=== PATIENT | female | born 1985 | race Hispanic/Latino ===

== ENCOUNTER → 2016-11-17 | Outpatient (CLI) | payer OTHER, MEDICAID ==
--- NOTE | 2016-11-17 11:38 | Diagnostic Imaging Report ---
INDICATION: survey. COMPARISON: 09/21/2016. DISCUSSION: Transabdominal sonographic evaluation of the gravid uterus was performed. Single live intrauterine at 20 weeks 2 days by today's sonographic measurements. Appropriate interval growth. EDC by today's ultrasound is 04/04/2017. presentation is breech. Normal amniotic fluid index. Grade 1 placenta is located anteriorly with no placenta previa. heart rate measures 133 beats per minute. Biparietal diameter measures 4.8 cm. Head circumference measures 17.2 cm. Abdominal circumference measures 15.6 cm. Femur length measures 3.0 cm. There is good visualization of the kidneys, bladder, stomach, brain, four-chamber heart, three-vessel cord and insertion, and movement; however, the entire spine is not well visualized due to positioning. Recommend short-term sonographic follow-up. IMPRESSION: 1. Single live intrauterine at 20 weeks 2 days by sonographic measurements. Poor visualization of the spine due to positioning. Recommend short-term sonographic follow-up. The remainder of the anatomical survey was within normal limits. Dictated by: Dictated on workstation # [id number]
== END ==
LOC: RAD 10:23
PROVIDERS: ATTEND Family Medicine
DX: Z34.82 Encounter for supervision of other normal pregnancy, second trimester (principal); Z3A.20 20 weeks gestation of pregnancy
CPT/HCPCS: 76805

== ENCOUNTER → 2017-01-19 | Outpatient (CLI) | payer MEDICAID | LOC: LAB 08:09 | PROVIDERS: ATTEND Family Medicine | DX: R73.02 Impaired glucose tolerance (oral) (principal) | CPT/HCPCS: 36415; 82951; 82952; 82962 ==

== ENCOUNTER → 2017-01-21 | Outpatient (CLI) | payer MEDICAID ==
--- NOTE | 2017-01-21 13:50 | Diagnostic Imaging Report ---
OB ultrasound. INDICATION: Followup spine. FINDINGS: heart rate is 124 beats per minute. The placenta is anterior. No placenta previa. The cervix is 6 cm in length and is closed. Amniotic fluid index is 13 cm. The spine is seen best in its upper and mid aspects and the less well defined in the inferior aspect with no definitive abnormality. IMPRESSION: Live intrauterine . No definite abnormality in the spine seen. Dictated by: Dictated on workstation # [id number]
== END ==
LOC: RAD 11:01
PROVIDERS: ATTEND Family Medicine
DX: Z34.80 Encounter for supervision of other normal pregnancy, unspecified trimester (principal)
CPT/HCPCS: 76816

== ENCOUNTER → 2017-03-11 | Outpatient (CLI) | payer MEDICAID ==
--- NOTE | 2017-03-11 19:03 | Diagnostic Imaging Report ---
INDICATION: Diet-controlled gestational diabetes. TECHNIQUE: Multiple real-time grayscale images were obtained over the gravid uterus. COMPARISON: 01/21/2017 FINDINGS: heart rate is 132 beats per minute. The placenta is anterior. No placenta previa. position is cephalic. RIIS is 10.2 cm. Biometrical measurements are as follows: Biparietal 8.89 cm, age 36 weeks 0 days. Head circumference 32.22 cm, age 36 weeks 3 days. Abdominal circumference 34.61 cm, age 38 weeks 4 days. The abdominal circumference is at 2.1 standard deviations above the mean for current gestational age of 36 weeks and 1 day based on DAVID assigned of 04/07/2017. Femur length 7.05 cm, age 36 weeks 1 days. Sonographic estimate age: 36 weeks 6 days. Sonographic estimated date of delivery: 04/02/2017. Estimated Weight: 3205 gm (+/- 468 gm). LMP percentile: 84%. heart rate: 132 beats per minute. number: 1 of 1. IMPRESSION: The abdominal circumference is at 2.1 standard deviations above the mean for gestational age. Dictated by: Dictated on workstation # [id number]
== END ==
LOC: RAD 10:49
PROVIDERS: ATTEND Family Medicine
DX: O24.410 Gestational diabetes mellitus in pregnancy, diet controlled (principal); Z3A.36 36 weeks gestation of pregnancy
CPT/HCPCS: 76816

== ENCOUNTER 2017-03-19 13:10 | Outpatient (RCR) | payer MEDICAID ==
--- NOTE | 2017-03-12 14:16 | Diagnostic Imaging Report ---
INDICATION: Gestational diabetes. biophysical profile performed in the routine fashion. The fetus scored 2 out of 2 in breathing, body movement, limb movement, and amniotic fluid index. Amniotic fluid index is 8.7 cm. heart rate is 149 beats per minute. IMPRESSION: biophysical profile score 8 out of 8. Dictated by: Dictated on workstation # [id number]
--- NOTE | 2017-03-19 14:08 | Diagnostic Imaging Report ---
INDICATION: biophysical profile. Gestational diabetes. FINDINGS: There is single live intrauterine fetus. Fetus is vertex. heart beat of 123 beats per minute. Amniotic fluid index is 5.6 cm. There is good motion and breathing. IMPRESSION: Normal biophysical profile scoring 8 of potential 8 points. The amniotic fluid index has decreased from 8.7 on previous exam to 5.6. Dictated by: Dictated on workstation # [id number]
[2017-03-19 15:11] VITALS: BP 119/63
[2017-03-24] MEDS ORDERED: PREN1TAB86 PO (22:23)
[2017-03-24] MEDS ORDERED: RANI-514 PO (22:25)
[2017-03-26] MEDS ORDERED: IBUP-1773 PO (10:13)
[2017-03-26] MEDS ORDERED: FERR-74 PO (10:13)
[2017-03-28] MEDS ORDERED: [UNRECOGNIZED DRUG - SUPPLY] ×2 (21:44→21:45)
[2017-03-28] MEDS ORDERED: HYDR-3812 PO (22:32)
[2017-03-28] MEDS ORDERED: CEPH500C PO (22:32)
== END 2017-06-10 | disposition home or self-care (01) ==
LOC: RAD 13:10
PROVIDERS: ATTEND Family Medicine
DX: O24.419 Gestational diabetes mellitus in pregnancy, unspecified control (principal); Z3A.36 36 weeks gestation of pregnancy
CPT/HCPCS: 76819; 87210

== ENCOUNTER 2017-03-24 18:18 | Inpatient (IN) | payer MEDICAID ==
[~2017-03-24] VITALS: Ht 152.4 cm; Wt 96.2 kg
[2017-03-24 19:15] VITALS: BP 126/71
[2017-03-24] MEDS ORDERED: AMPICILLIN INJECTION 2,000 MG in NS (IVPB) 50 ML IV SCH ×4 (19:59)
[2017-03-24 20:00] VITALS: BP 122/80
[2017-03-24] MEDS ORDERED: TETANUS,DIPTH,PERTUSS P/F (BOOSTRIX) 0.5 ML VIAL IM ONE (20:00)
[2017-03-24] MEDS ORDERED: MINERAL OIL CONCENTRATE 99.9% 15 ML UDC TOP PRN (20:00)
[2017-03-24] MEDS ORDERED: D5 LR IV SOLUTION 1,000 ML IV ONE (20:01)
[2017-03-24 20:18] LABS: BASOPHILS % (AUTO) 0 % (0-10); EOSINOPHILS # (AUTO) 0.2 10^3/uL (0.0-0.3); EOSINOPHILS % (AUTO) 3 % (0-10); LYMPHOCYTES # (AUTO) 1.7 X 10^3 (1.0-4.0); LYMPHOCYTES % (AUTO) 21 % (12-44); MEAN CORPUSCULAR HEMOGLOBIN 29 PG (25-34); MEAN CORPUSCULAR HGB CONC 32 G/DL (32-36); MEAN CORPUSCULAR VOLUME 89 FL (80-99); MEAN PLATELET VOLUME 13.4 FL (7.4-10.4); MONOCYTES # (AUTO) 0.5 X 10^3 (0.0-1.0); MONOCYTES % (AUTO) 6 % (0-12); NEUTROPHILS # (AUTO) 5.5 X 10^3 (1.8-7.8); NEUTROPHILS % (AUTO) 70 % (42-75); PLATELET COUNT 181 10^3/uL (130-400); RED CELL DISTRIBUTION WIDTH 13.9 % (10.0-14.5); WHITE BLOOD COUNT 7.8 10^3/uL (4.3-11.0)
[2017-03-24] MEDS ORDERED: DINOPROSTONE 10 MG (CERVIDIL) INSERT ONE (20:20)
[2017-03-24] MEDS: NS IV 1000 ML 1,000 ML IV SCH (20:35)
[2017-03-24 21:00] VITALS: BP 141/67
[2017-03-24 22:00] VITALS: BP 138/72
[2017-03-24] MEDS ORDERED: CATHETER FLUSH 10 ML SYR IV SCH (22:00)
[2017-03-24] MEDS ORDERED: PREN1TAB86 PO (22:23)
[2017-03-24] MEDS ORDERED: RANI-514 PO (22:25)
[2017-03-24 23:00] VITALS: BP 122/54
[2017-03-25] VITALS (48 sets, daily range): BP systolic 96–150; BP diastolic 55–85
[2017-03-25] MEDS ORDERED: AMPICILLIN INJECTION 1,000 MG in NS (IVPB) 50 ML IV SCH ×2
[2017-03-25] MEDS ORDERED: ACETAMINOPHEN 500 MG TAB (TYLENOL) PO ONE (00:01)
[2017-03-25] MEDS ORDERED: ACETAMINOPHEN 500 MG TAB (TYLENOL) ONE (00:08)
[2017-03-25] MEDS: AMPICILLIN INJECTION 1,000 MG in NS (IVPB) 50 ML IV SCH ×4 (00:33→12:03)
[2017-03-25] MEDS: BUTORPHANOL INJ 2 MG/ML (STADOL) VIAL IV PRN ×3 (03:15→08:24)
[2017-03-25] MEDS ORDERED: NS (IVPB) 50 ML ONE (04:21)
[2017-03-25] MEDS ORDERED: AMPICILLIN 1000 MG INJECTION (IV/IM) ONE (04:21)
[2017-03-25] MEDS: NS IV 1000 ML 1,000 ML IV SCH (04:40)
[2017-03-25] MEDS ORDERED: D5 1/2 NS 1000 ML IV SOLUTION 1,000 ML IV SCH (08:45)
[2017-03-25] MEDS ORDERED: SUFENTA 0.6MCG/ML BUPIVA 0.125 100 ML ONE (09:21)
[2017-03-25] MEDS ORDERED: BUPIVACAINE 0.25% 30 ML (SENSORCAINE) VIAL ONE (09:45)
[2017-03-25] MEDS ORDERED: LIDOCAINE PF 2% 10 ML (XYLOCAINE) AMP ONE (09:45)
[2017-03-25] MEDS ORDERED: fentaNYL INJECTION 100 MCG/2 ML AMP ONE (09:45)
[2017-03-25] MEDS ORDERED: OXYTOCIN/NORMAL SALINE 500 ML IV ONE ×2 (11:43→14:15)
[2017-03-25] MEDS ORDERED: LACTATED RINGERS 1,000 ML IV ONE ×2 (12:50)
[2017-03-25] MEDS ORDERED: NALOXONE 0.4 MG/ML 1 ML (NARCAN) VIAL IV PRN (13:00)
[2017-03-25] MEDS ORDERED: EPIDURAL (SUFENTA 0.6MCG/ML BUPIVA 0.125%) 100 ML BAG EPI PRN (13:00)
[2017-03-25] MEDS ORDERED: ONDANSETRON 4 MG/2 ML (SDV) Z0FRAN IV PRN (13:00)
[2017-03-25] MEDS: OXYTOCIN/NORMAL SALINE 500 ML IV SCH ×2 (13:46→14:19)
--- NOTE | 2017-03-25 14:05 | History & Physical-OB ---
OB - Chief Complaint & HPI Date Date of Admission: Date of Admission: March 24, 2017 at 18:21 Chief Complaint/History OB-Reason for Admission/Chief: Induction of Labor Hx : 2 Hx Para: 1 Expected Date of Delivery: Apr 05, 2017 Gestational Age in Weeks: 38 Indication for induction: medical complication (Gestational DM:diet controlled , IRIS 5.2) History of Labs GBS + Allergies and Home Medications Allergies Coded Allergies: No Known Drug Allergies (Unverified , 03/24/17) Home Medications Vit W-Ca,Fe,FA(<1 mg) 1 Each Tablet, 1 EACH PO DAILY, (Reported) Ranitidine HCl Unknown Strength Tablet, Unknown Dose PO BID, (Reported) OB - History Hx of Present Care: Yes Ultrasounds: Normal mid trimester US Obstetrical Complications: Gestational Diabetes Information Maternal Gestational Diabetes: Yes Obstetrical History Hx : 2 Hx Para: 1 Hx # Term Pregnancies: 1 Number of Living Children: 1 Hx Induced Hypertens: No Hx Maternal Gestational Diabet: No Delivery History Adverse Rxn to Tranfusion: No Patient Past Medical History Gestational DM Social History/Family History HIV/AIDS: No Recent Infectious Disease Expo: No Sexually Transmitted Disease: No Alcohol Use: Denies Use Recreational Drug Use: No Immunizations Hepatitis A: Yes Hepatitis B: Yes Tetanus Booster (TDap): Less than 5yrs Rubella: immune RPR/VDRL: Negative GBS Status: Positive HBsAG: Negative OB - Admission Exam Physical Exam Vitals: Vital Signs 03/25/17 03/25/17 10:06 10:40 Temp 99.1 Pulse 75 Resp 22 B/P (MAP) 119/65 Pulse Ox 98 Heart: Rhythm Normal Lungs: Clear Abdomen: Soft Extremities: Normal Reflexes: Normal Cervical Dilatation: 10cm Effacement: 100% Station: 0 Membranes: Ruptured Amniotic Fluid: Clear Heart Rate: 140's Accelerations: Accelerations Present Decelerations: Variable Decelerations Labs Laboratory Tests Test 03/24/17 20:12 03/24/17 20:50 03/25/17 02:51 03/25/17 08:27 Range/Units White Blood Count 7.8 4.3-11.0 10^3/uL Red Blood Count 4.40 4.35-5.85 10^6/uL Hemoglobin 12.7 11.5-16.0 G/DL Hematocrit 39 35-52 % Mean Corpuscular Volume 89 80-99 FL Mean Corpuscular Hemoglobin 29 25-34 PG Mean Corpuscular Hemoglobin Concent 32 32-36 G/DL Red Cell Distribution Width 13.9 10.0-14.5 % Platelet Count 181 130-400 10^3/uL Mean Platelet Volume 13.4 H 7.4-10.4 FL Neutrophils (%) (Auto) 70 42-75 % Lymphocytes (%) (Auto) 21 12-44 % Monocytes (%) (Auto) 6 0-12 % Eosinophils (%) (Auto) 3 0-10 % Basophils (%) (Auto) 0 0-10 % Neutrophils # (Auto) 5.5 1.8-7.8 X 10^3 Lymphocytes # (Auto) 1.7 1.0-4.0 X 10^3 Monocytes # (Auto) 0.5 0.0-1.0 X 10^3 Eosinophils # (Auto) 0.2 0.0-0.3 10^3/uL Basophils # (Auto) 0.0 0.0-0.1 10^3/uL Glucometer 88 79 67 L 70-110 MG/DL Test 03/25/17 10:26 03/25/17 11:37 03/25/17 12:39 Range/Units Glucometer 88 94 98 70-110 MG/DL OB - Assessment/Plan/Diagnosis Assessment Assessment: induction of labor Plan Plan: Induction Induction Method: per Pitocin Protocol Other Plan 31 yo @ 38 wga here for IOL for gestational DM, low IRIS. Plan - Cervidil removed this AM - SROM when cervidil removed - GBS +: Ampicillin - Continue expectant management - GDM: D51/2NS for fluids, blood sugars every hour during active labor - epidural for pain control. Copy Copies To 1: JAQUELINE ALVES MD, HOLLY R MD March 25, 2017 14:05
--- NOTE | 2017-03-25 14:12 | OB Labor & Delivery Record ---
L&D History Date of Service Date of Service: March 25, 2017 History Expected Date of Delivery: Apr 05, 2017 Gestational Age in Weeks: 38 Hx : 2 Hx Para: 1 Complications Events: Gestational Diabetes, Routine care Operative Indications (Cesarea: N/A-Vaginal Delivery Intrapartal Events: None L&D Stage1 Stage One Onset of Labor - Date: March 25, 2017 Onset of Labor - Time: 08:26 Monitors and Tracing Monitor Mode: External Heart Rate: 120 Station: -2 Vital Signs VS - Last 72 Hours, by Label 03/24/17 03/24/17 03/24/17 03/24/17 19:15 20:00 21:00 22:00 Temp 98.3 Pulse 90 81 93 98 Resp 20 18 18 18 B/P (MAP) 126/71 122/80 141/67 138/72 03/24/17 03/25/17 03/25/17 03/25/17 23:00 00:01 01:00 02:00 Temp 97.3 99.5 Pulse 94 89 75 85 Resp 18 18 20 20 B/P (MAP) 122/54 144/74 126/71 107/56 03/25/17 03/25/17 03/25/17 03/25/17 03:00 03:45 04:15 04:45 Temp 99.8 97.8 Pulse 75 80 76 Resp 18 20 18 B/P (MAP) 111/57 118/64 116/61 03/25/17 03/25/17 03/25/17 03/25/17 05:45 06:10 07:00 07:16 Temp 98.3 98.1 Pulse 81 70 75 Resp 18 20 20 B/P (MAP) 100/55 119/55 120/63 03/25/17 03/25/17 03/25/17 03/25/17 07:28 07:58 08:28 08:58 Pulse 74 77 84 82 Resp 18 18 18 18 B/P (MAP) 110/58 119/76 131/71 121/77 03/25/17 03/25/17 03/25/17 03/25/17 09:28 09:58 10:00 10:03 Pulse 87 81 81 85 Resp 18 18 18 22 B/P (MAP) 150/85 143/73 133/67 136/65 Pulse Ox 98 98 03/25/17 03/25/17 03/25/17 03/25/17 10:06 10:09 10:13 10:16 Temp 99.1 Pulse 82 77 76 82 Resp 22 22 B/P (MAP) 132/71 121/69 115/67 122/75 Pulse Ox 97 96 97 03/25/17 03/25/17 03/25/17 03/25/17 10:19 10:22 10:25 10:30 Pulse 85 75 78 71 Resp 22 22 22 22 B/P (MAP) 96/58 114/69 118/71 123/70 Pulse Ox 97 98 98 98 03/25/17 10:40 Pulse 75 Resp 22 B/P (MAP) 119/65 Pulse Ox 98 Rupture of Membranes Spontaneous Ruture of Membrane: Yes Amniotic Membrane Rupture Time: 08:26 Amniotic Membrane Fluid Desc.: Clear Induction/Anesthesia Epidural Cath Placement - Time: 0958 L&D Stage2 Stage Two Stage II Date: March 25, 2017 Stage II Time: 13:41 Monitors and Tracing Monitor Mode: Internal Heart Rate: 120 Monitor Decelerations: Variable Position: Left Occiput Anterior Presentation: Vertex Cord Descript/Complications Cord Vessel Description: 3 Vessels Delivery Type Infant Delivery Method: Spontaneous Vaginal Anterior Shoulder: Right Episiotomy/Perineal Laceration Episiotomy Description: Midline (skin tear, no repair needed) Condition of Delivery Delivery Date & Time: 1341 1 minute Comment: 9 5 minute Comment: 9 Condition of Infant Condition of Infant: Living Exam: No Observed Abnormalities BW: 7#0 Resuscitation Resuscitation: N/A - Spontaneous Resp L&D Stage3 Stage Three Stage III Date: March 25, 2017 Stage III Time: 13:46 Pictocin Pitocin Administration Comment: 2 bags wide open following delivery of placenta Placenta Delivery Placenta Delivery: Spontaneous Delivery Summary Summary Vaginal blood loss >500ml: No 150 Attending at delivery: Keiry Condition of Delivery Examined: Cervix Examined Post Hemorrhage: No Condition of Mother Stable in delivery room Condition of (s) Stable in delivery room with mother JAQUELINE ALVES MD March 25, 2017 14:12
[2017-03-25] MEDS ORDERED: WITCH HAZEL(TUCKS) 40 EA JAR TOP PRN (14:15)
[2017-03-25] MEDS ORDERED: BENZOCAINE/MENTHOL (DERMOPLAST) 56 ML CAN TP PRN (14:15)
[2017-03-25] MEDS: IBUPROFEN 600 MG (MOTRIN) TAB PO SCH ×2 (14:49→20:39)
[2017-03-25] MEDS ORDERED: MISOPROSTOL 200 MCG (CYTOTEC) TABLET PR NR (19:00)
[2017-03-26 00:18] VITALS: BP 101/58
[2017-03-26] MEDS: IBUPROFEN 600 MG (MOTRIN) TAB PO SCH ×3 (02:58→16:00)
[2017-03-26 03:03] VITALS: BP 110/58
[2017-03-26 05:47] LABS: BASOPHILS % (AUTO) 0 % (0-10); EOSINOPHILS # (AUTO) 0.2 10^3/uL (0.0-0.3); EOSINOPHILS % (AUTO) 2 % (0-10); LYMPHOCYTES # (AUTO) 2.4 X 10^3 (1.0-4.0); LYMPHOCYTES % (AUTO) 18 % (12-44); MEAN CORPUSCULAR HEMOGLOBIN 29 PG (25-34); MEAN CORPUSCULAR HGB CONC 33 G/DL (32-36); MEAN CORPUSCULAR VOLUME 90 FL (80-99); MEAN PLATELET VOLUME 13.4 FL (7.4-10.4); MONOCYTES # (AUTO) 0.7 X 10^3 (0.0-1.0); MONOCYTES % (AUTO) 5 % (0-12); NEUTROPHILS % (AUTO) 75 % (42-75); PLATELET COUNT 168 10^3/uL (130-400); RED BLOOD COUNT 3.65 10^6/uL (4.35-5.85); WHITE BLOOD COUNT 13.3 10^3/uL (4.3-11.0)
[2017-03-26] MEDS: CATHETER FLUSH 10 ML SYR IV SCH ×2 (06:07→06:08)
[2017-03-26] MEDS ORDERED: PRENATAL VITAMIN 1 EA TAB PO SCH (07:00)
[2017-03-26] MEDS ORDERED: FERROUS SULF 325 MG (IRON) TAB PO ONE (09:05)
[2017-03-26 09:07] VITALS: BP 109/69
[2017-03-26] MEDS ORDERED: FERR-74 PO (10:13)
[2017-03-26] MEDS ORDERED: IBUP-1773 PO (10:13)
--- NOTE | 2017-03-26 10:16 | Discharge Instructions ---
Discharge Inst-Women's Serv Depart Medications New, Converted or Re-Newed RX: Transmitted to Pharmacy New Medications: Ferrous Sulfate (Ferrous Sulfate) 325 Mg Tablet 325 MG PO DAILY@0700, #30 TAB 0 Refills Ibuprofen (Ibuprofen) 600 Mg Tablet 600 MG PO Q6H PRN for PAIN-MILD TO MODERATE, #60 TAB 0 Refills Continued Medications: Vit W-Ca,Fe,FA(<1 mg) ( Vitamins) 1 Each Tablet 1 EACH PO DAILY, TAB Discontinued Medications: Ranitidine HCl (Acid [employer] (RANITIDINE)) Unknown Strength Tablet Unknown Dose PO BID, TAB Follow Up/Instructions Goal/Follow Up: Follow up with Dr. Ricci in 6 weeks for visit. Activity Activity: Activity as Tolerated (avoid strenuous activity x 6 weeks) Driving Instructions: You May Drive Nothing Inside Vagina: No Douching, No Loiza Diet Discharge Diet: No Restrictions Symptoms to Report to : Swelling Increased, Fever Over 101 Degrees F, Pain/ Pressure in Chest, Vaginal Bleeding Increase, Cramps in Feet or Legs, Vaginal Discharge Foul, Dizziness/Fainting, Shortness of Breath For Any Problems or Questions: Contact Your Physician Copies To 1: JAQUELINE RICCI MD, BETHANY N MD March 26, 2017 10:16 am
--- NOTE | 2017-03-26 10:17 | Discharge Summary ---
Diagnosis/Chief Complaint Date of Admission March 24, 2017 at 6:21 pm Date of Discharge March 26, 2017 Admission Diagnosis Admission Diagnosis Term IUP at 38 weeks Gestational diabetes diet controlled Borderline oligohydramnios Discharge Diagnosis S/P spontaneous vaginal delivery- unremarkable course, asymptomatic anemia, started on iron once daily Gestational diabetes, diet controlled- discussed importance of 6 week follow-up and lifelong risk of developing diabetes Chief Complaint/HPI Chief Complaint/HPI 31 yo G2 now P2 presented to L&D for IOL due to GDMA1 and borderline oligohydramnios at 38 weeks gestation. Discharge Summary-Simple/Stand Procedures Spontaneous vaginal delivery Discharge Physical Examination Allergies: Coded Allergies: No Known Drug Allergies (Unverified , 03/24/17) Vitals & I&Os Vital Sign - Last 12Hours Date Time Temp Pulse Resp B/P (MAP) Pulse Ox O2 Delivery O2 Flow Rate FiO2 03/26/17 09:07 97.4 80 20 109/69 97 Intake and Output 03/26/17 00:00 Intake Total 1500 ml Balance 1500 ml General Appearance: Alert, No Acute Distress Respiratory: Clear to Auscultation, Normal Air Movement Cardiovascular: Regular Rate, No Murmurs Abdominal: Normal Bowel Sounds, Other (fundus firm at umbilicus) Extremities: No Edema Neuro: Normal Speech Psych/Mental Status: Mental Status NL Hospital Course See final discharge diagnosis. Labs Laboratory Tests Test 03/24/17 20:12 03/24/17 20:50 03/25/17 02:51 03/25/17 08:27 Range/Units White Blood Count 7.8 4.3-11.0 10^3/uL Red Blood Count 4.40 4.35-5.85 10^6/uL Hemoglobin 12.7 11.5-16.0 G/DL Hematocrit 39 35-52 % Mean Corpuscular Volume 89 80-99 FL Mean Corpuscular Hemoglobin 29 25-34 PG Mean Corpuscular Hemoglobin Concent 32 32-36 G/DL Red Cell Distribution Width 13.9 10.0-14.5 % Platelet Count 181 130-400 10^3/uL Mean Platelet Volume 13.4 H 7.4-10.4 FL Neutrophils (%) (Auto) 70 42-75 % Lymphocytes (%) (Auto) 21 12-44 % Monocytes (%) (Auto) 6 0-12 % Eosinophils (%) (Auto) 3 0-10 % Basophils (%) (Auto) 0 0-10 % Neutrophils # (Auto) 5.5 1.8-7.8 X 10^3 Lymphocytes # (Auto) 1.7 1.0-4.0 X 10^3 Monocytes # (Auto) 0.5 0.0-1.0 X 10^3 Eosinophils # (Auto) 0.2 0.0-0.3 10^3/uL Basophils # (Auto) 0.0 0.0-0.1 10^3/uL Glucometer 88 79 67 L 70-110 MG/DL Test 03/25/17 10:26 03/25/17 11:37 03/25/17 12:39 03/26/17 05:36 Range/Units Glucometer 88 94 98 70-110 MG/DL White Blood Count 13.3 H 4.3-11.0 10^3/uL Red Blood Count 3.65 L 4.35-5.85 10^6/uL Hemoglobin 10.7 L 11.5-16.0 G/DL Hematocrit 33 L 35-52 % Mean Corpuscular Volume 90 80-99 FL Mean Corpuscular Hemoglobin 29 25-34 PG Mean Corpuscular Hemoglobin Concent 33 32-36 G/DL Red Cell Distribution Width 14.0 10.0-14.5 % Platelet Count 168 130-400 10^3/uL Mean Platelet Volume 13.4 H 7.4-10.4 FL Neutrophils (%) (Auto) 75 42-75 % Lymphocytes (%) (Auto) 18 12-44 % Monocytes (%) (Auto) 5 0-12 % Eosinophils (%) (Auto) 2 0-10 % Basophils (%) (Auto) 0 0-10 % Neutrophils # (Auto) 10.0 H 1.8-7.8 X 10^3 Lymphocytes # (Auto) 2.4 1.0-4.0 X 10^3 Monocytes # (Auto) 0.7 0.0-1.0 X 10^3 Eosinophils # (Auto) 0.2 0.0-0.3 10^3/uL Basophils # (Auto) 0.0 0.0-0.1 10^3/uL Discharge Instructions to patient/family Please see electonic discharge instructions given to patient. Discharge Medications Reviewed and agree with Discharge Medication list on patient's Discharge Instruction sheet Clinical Quality Measures DVT/VTE Risk/Contraindication: Risk Factor Score Per Nursin RFS Level Per Nursing on Admit: 2=Moderate Copy Copies To 1: JAQUELINE ALVES MD, BETHANY N MD March 26, 2017 10:17 am
--- NOTE | 2017-03-26 10:40 | Anesthesia-Regional Post-Op ---
Regional Patient Condition Mental Status: Alert, Oriented x3 Circulation: Same as Pre-Op Headache: Absent Sensation: Full Recovery Motor Block: Absent Post Op Complications Complications None Follow Up Care/Instructions Patient Instructions None needed. Anesthesia/Patient Condition Patient is doing well, no complaints, stable vital signs, no apparent adverse anesthesia problems. No complications reported per nursing. KARRIE ROMERO CRNA March 26, 2017 10:40
[2017-03-26] MEDS ORDERED: POLYETHYLENE GLYCOL 17 GM (MIRALAX) PACK PO ONE (11:00)
[2017-03-26 12:06] VITALS: BP 127/71
[2017-03-27] MEDS ORDERED: FERROUS SULF 325 MG (IRON) TAB PO SCH (07:00)
== END 2017-03-26 18:00 | disposition home or self-care (01) | DRG 775 ==
LOC: WSo 18:18 → EDSTATUS 18:20 → LDRP 18:21 → ENPENDDIS 03-26 15:00
PROVIDERS: ADMIT Family Medicine; ATTEND Family Medicine
PROC: 10E0XZZ Delivery of Products of Conception, External Approach (ICD-10-PCS; principal; 2017-03-25)
PROC: 3E0P7GC Introduction of Other Therapeutic Substance into Female Reproductive, Via Natural or Artificial Opening (ICD-10-PCS; 2017-03-25)
DX: O24.420 Gestational diabetes mellitus in childbirth, diet controlled (principal); O41.03X0 Oligohydramnios, third trimester, not applicable or unspecified; O99.824 Streptococcus B carrier state complicating childbirth; O90.81 Anemia of the puerperium; Z3A.38 38 weeks gestation of pregnancy; Z37.0 Single live birth
CPT/HCPCS: 36415; 82962; 85025; 86850; 86900; 86901

== ENCOUNTER 2017-03-28 20:07 | Emergency (ER) | payer MEDICAID ==
[~2017-03-28] VITALS: Ht 152.4 cm; Wt 96.2 kg
[~2017-03-28 20:07] MED LIST: FERR-74 PO; IBUP-1773 PO; PREN1TAB86 PO; RANI-514 PO
--- NOTE | 2017-03-28 21:12 | ED General ---
General Chief Complaint: General Problems/Pain Stated Complaint: GEN PAIN 2 POST DELIVERY Nursing Triage Note: PT TO ED 9 W/ C/O RT EAR PAIN ONSET SINCE BEING DISCHARGED X2 DAYS AGO FROM [facility] AFTER HAVING CHILD. ALSO C/O BILAT BREAST PAIN/FIRMNESS ET LOWER BACK PAIN. PT REPORTS SHE DID HAVE A EPIDURAL W/ DELIVERY. NO OTHER C/O VOICED Nursing Sepsis Screen: No Definite Risk Source of Information: Patient Exam Limitations: No Limitations History of Present Illness Time Seen by Provider: 21:12 Initial Comments 31-year-old female patient presents to the emergency department complaints of today onset of ear pain, headache, and low back pain beginning prior to delivery of her . Patient states she had told staff as well as the physician that she is having symptoms prior to delivering the baby. States nothing was given for the symptoms. Reports symptoms have been waxing and waning. Patient also reports she has not been able to express breast milk and has been attempting to pump with a manual pump. Denies having an electric pump at home. Timing/Duration: 3-4 Days, Constant Modifying Factors: worse with Other (worse with palpation) Allergies and Home Medications Allergies Coded Allergies: No Known Drug Allergies (Unverified , 03/24/17) Home Medications Cephalexin 500 Mg Capsule, 500 MG PO TID, #21 Ref 0 Prescribed by: MADAY EPSTEIN on 03/28/172 Ferrous Sulfate 325 Mg Tablet, 325 MG PO DAILY@0700, #30 Ref 0 Prescribed by: SAM JEREZ on 03/26/17 1013 Hydrocodone/Acetaminophen 1 Each Tablet, 1 EACH PO Q4H PRN for PAIN, #14 Ref 0 Prescribed by: MADAY EPSTEIN on 03/28/17 2232 Ibuprofen 600 Mg Tablet, 600 MG PO Q6H PRN for PAIN-MILD TO MODERATE, #60 Ref 0 Prescribed by: SAM JEREZ on 03/26/17 1013 Vit W-Ca,Fe,FA(<1 mg) 1 Each Tablet, 1 EACH PO DAILY, (Reported) Constitutional: chills, fever, malaise EENTM: ear discharge (clear), ear pain (rt), nose congestion, other (rhinorrhea ), see HPI, No hearing loss, No hoarseness, No throat pain Respiratory: No cough, No phlegm, No short of breath Cardiovascular: no symptoms reported Gastrointestinal: No abdominal pain, No constipation, No diarrhea, No loss of appetite, No nausea, No vomiting Genitourinary: No decreased output, No discharge, No dysuria, No frequency, No hematuria, No pain Musculoskeletal: see HPI, back pain, No joint pain, No neck pain Skin: No change in color, No lesions, No lumps Psychiatric/Neurological: Headache, Denies Numbness, Denies Paresthesia, Denies Tingling, Denies Weakness All Other Systems Reviewed Negative Unless Noted: Yes (Negative excepted noted.) Past Sicwqho-Eilgiu-Rasvoj Hx Patient Social History Alcohol Use: Denies Use Recreational Drug Use: No Smoking Status: Never a Smoker Recent Foreign Travel: No Contact w/Someone Who Travel: No Recent Infectious Disease Expo: No Recent Hopitalizations: No Immunizations Up To Date Tetanus Booster (TDap): Less than 5yrs Seasonal Allergies Seasonal Allergies: Yes (NO PROBLEMS DURING THIS ) Surgeries HX Surgeries: No Respiratory Hx Respiratory Disorders: No Cardiovascular Hx Cardiac Disorders: No Neurological Hx Neurological Disorders: No Reproductive System Sexually Transmitted Disease: No HIV/AIDS: No Genitourinary Hx Genitourinary Disorders: No Gastrointestinal Hx Gastrointestinal Disorders: No Musculoskeletal Hx Musculoskeletal Disorders: No Endocrine Hx Endocrine Disorders: No HEENT HX ENT Disorders: No Loss of Vision: Denies Hearing Impairment: Denies Psychosocial Behavioral Health Disorders: Depression Blood Transfusions Adverse Reaction to a Blood Tr: No Reviewed Nursing Assessment Reviewed/Agree w Nursing PMH: Yes Family Medical History Significant Family History: No Pertinent Family Hx Family Medial History: Bone cancer 19 MOTHER FH: breast cancer 19 MOTHER FH: lung cancer 19 FATHER Physical Exam Vital Signs Vital Sign - Last 12Hours 03/28/17 20:45 Temp 97.7 Pulse 107 Resp 20 B/P (MAP) 131/75 Pulse Ox 97 O2 Delivery Room Air Capillary Refill : Less Than 3 Seconds General Appearance: No Apparent Distress, WD/WN Eyes: Bilateral Eye EOMI, Bilateral Eye Normal Inspection, Bilateral Eye PERRL HEENT: PERRL/EOMI, TMs Normal, Normal ENT Inspection, Pharynx Normal Neck: Full Range of Motion, Normal Inspection, Non Tender, Supple Respiratory: Lungs Clear, Normal Breath Sounds, No Respiratory Distress Cardiovascular: Regular Rate, Rhythm, No Edema, No Murmur, Normal Peripheral Pulses Gastrointestinal: Normal Bowel Sounds, No Organomegaly, Non Tender, Soft, No Distended Back: Normal Inspection, No CVA Tenderness Extremity: Normal Capillary Refill, No Pedal Edema Neurologic/Psychiatric: Alert, Oriented x3, No Motor/Sensory Deficits, Normal Mood/Affect, lead sustainability specialist II-XII Norm as Tested Skin: Normal Color, Warm/Dry, Other (epidural site nontender. no evidence or erythema, warmth, or drainage. ) Comments bilateral breasts are engorged. Patient states she has been trying to pump at home with a manual pump, but denies breast milk coming out. Denies having an electric pump at home. Focused Exam Lactic Acid Level Progress/Results/Core Measures Results/Orders Lab Results Laboratory Tests Test 03/28/17 21:35 03/28/17 21:43 Range/Units Urine Color YELLOW Urine Clarity VERY CLOUDY H Urine pH 6.5 5-9 Urine Specific [place] 1.020 1.016-1.022 Urine Protein 2+ H NEGATIVE Urine Glucose (UA) NEGATIVE NEGATIVE Urine Ketones NEGATIVE NEGATIVE Urine Nitrite NEGATIVE NEGATIVE Urine Bilirubin NEGATIVE NEGATIVE Urine Urobilinogen 1 NORMAL MG/DL Urine Leukocyte Esterase 3+ H NEGATIVE Urine RBC (Auto) 5+ H NEGATIVE Urine RBC 25-50 H /HPF Urine WBC 10-25 H /HPF Urine Squamous Epithelial Cells 25-50 H /HPF Urine Crystals NONE /LPF Urine Bacteria NEGATIVE /HPF Urine Casts NONE /LPF Urine Mucus SMALL H /LPF Urine Culture Indicated YES White Blood Count 10.5 4.3-11.0 10^3/uL Red Blood Count 3.86 L 4.35-5.85 10^6/uL Hemoglobin 11.3 L 11.5-16.0 G/DL Hematocrit 35 35-52 % Mean Corpuscular Volume 90 80-99 FL Mean Corpuscular Hemoglobin 29 25-34 PG Mean Corpuscular Hemoglobin Concent 33 32-36 G/DL Red Cell Distribution Width 14.2 10.0-14.5 % Platelet Count 252 130-400 10^3/uL Mean Platelet Volume 12.6 H 7.4-10.4 FL Neutrophils (%) (Auto) 77 H 42-75 % Lymphocytes (%) (Auto) 15 12-44 % Monocytes (%) (Auto) 4 0-12 % Eosinophils (%) (Auto) 4 0-10 % Basophils (%) (Auto) 0 0-10 % Neutrophils # (Auto) 8.1 H 1.8-7.8 X 10^3 Lymphocytes # (Auto) 1.6 1.0-4.0 X 10^3 Monocytes # (Auto) 0.4 0.0-1.0 X 10^3 Eosinophils # (Auto) 0.4 H 0.0-0.3 10^3/uL Basophils # (Auto) 0.0 0.0-0.1 10^3/uL Prothrombin Time 11.9 L 12.2-14.7 SEC INR Comment 0.9 0.8-1.4 Activated Partial Thromboplast Time 27 24-35 SEC Sodium Level 140 135-145 MMOL/L Potassium Level 3.5 L 3.6-5.0 MMOL/L Chloride Level 110 H 98-107 MMOL/L Carbon Dioxide Level 20 L 21-32 MMOL/L Anion Gap 10 5-14 MMOL/L Blood Urea Nitrogen 11 7-18 MG/DL Creatinine 0.53 L 0.60-1.30 MG/DL Estimat Glomerular Filtration Rate > 60 BUN/Creatinine Ratio 21 Glucose Level 104 70-105 MG/DL Lactic Acid Level 0.84 0.50-2.00 MMOL/L Calcium Level 8.7 8.5-10.1 MG/DL Total Bilirubin 0.3 0.1-1.0 MG/DL Aspartate Amino Transf (AST/SGOT) 93 H 5-34 U/L Alanine Aminotransferase (ALT/SGPT) 143 H 0-55 U/L Alkaline Phosphatase 133 40-136 U/L Total Protein 6.2 L 6.4-8.2 G/DL Albumin 3.0 L 3.2-4.5 G/DL Micro Results Microbiology 03/28/17 Blood Culture - Preliminary, Resulted No growth 03/28/17 Blood Culture - Preliminary, Resulted No growth 03/28/17 Urine Culture - Preliminary, Resulted Escherichia Coli Group B Streptococci My Orders Orders - MADAY EPSTEIN Cbc With Automated Diff (03/28/17 21:26) Comprehensive Metabolic Panel (03/28/17 21:26) Lactic Acid Analyzer (03/28/17 21:26) Blood Culture (03/28/17 21:26) Ua Culture If Indicated (03/28/17 21:26) Protime With Inr (03/28/17 21:26) Partial Thromboplastin Time (03/28/17 21:26) Chest 1 View, Ap/Pa Only (03/28/17 21:26) Ondansetron Injection (Zofran Injectio (03/28/17 21:30) Acetaminophen Tablet (Tylenol Tablet) (03/28/17 21:30) Saline Lock/Iv-Start (03/28/17:) Ns Iv 1000 Ml (Sodium Chloride 0.9%) (03/28/17 21:30) Vital Signs Adult Sepsis Patie Q1HR (03/28/17 21:) Remove Rings In Anticipation O (03/28/17 21:) Ct Head Wo (03/28/17:) Urine Culture (03/28/17 21:) Rx-Cephalexin Capsule (Rx-Keflex Capsule (03/28/17 22:25) Rx-Hydrocodone/Apap 5-325 Mg (Rx-Vicodin (03/28/17 22:30) Medications Given in ED Vital Signs/I&O Intake and Output 03/29/17 00:00 Intake Total 1000 ml Balance 1000 ml Blood Pressure Mean: 93 Diagnostic Imaging Diagonstic Imaging: Xray Plain Films/CT/US/NM/MRI: chest Comments FINDINGS: Frontal view of the chest demonstrates the lungs to be clear. The heart, mediastinum and pulmonary vascularity are normal. IMPRESSION: Normal chest. Dictated by: Dictated on workstation # [id number] Reviewed: Reviewed by Me (radiology report reviewed by me.) Diagonstic Imaging: CT Plain Films/CT/US/NM/MRI: head Comments FINDINGS: Noncontrast CT scan of the head demonstrates no mass effect, midline shift, hemorrhage or extra-axial fluid collections. King-white matter differentiation is normal. The ventricles, cortical sulci and basilar cisterns appear normal. Osseous structures are normal. No fluid is seen in the paranasal sinuses or mastoid air cells. IMPRESSION: Normal CT scan of the head. Dictated by: Dictated on workstation # [id number] Reviewed: Reviewed by Me (radiology report reviewed) Departure Communication Progress Notes all laboratory and diagnostic findings discussed with the patient. patient reports complete resolution of symptoms with IVF and medications. Patient now states she did nut picker an electric pump earlier today, but has not used it yet. Patient instructed to continue using the pumps and to f/u with her PCP for recheck. plan for dsch to home with oral antibiotics. All return precautions were discussed with the patient as described in the psychiatric hospital instructions of this report. patient voices understanding and agrees with the treatment plan. Impression Impression: Primary Impression: Urinary tract infection Additional Impressions: Ear pain, right Breast dis NEC-postpart Disposition: 01 HOME, SELF-CARE Condition: Improved Departure-Patient Inst. Decision time for Depature: 22:45 Referrals: JAQUELINE ALVES MD (PCP/Family) Primary Care Physician Patient Instructions: Common Problems, How to Express, Store, and Handle Breast Milk, Pumping Breast Milk, Urinary Tract Infection, Adult (DC) Add. Discharge Instructions: All discharge instructions reviewed with patient and/or family. Voiced understanding. Medications as directed. Tylenol over the counter for pain as directed. Motrin 600 mg by mouth every 6 hours as needed for pain. Attempt to breast feed and/or use the breast pump at least every 3-4 hours. Drink plenty of fluids. Follow-up with your physician early this week for recheck. Call for appointment time Wednesday. Return to the emergency department for worsened fever, pain, headache, shortness of breath, vomiting, dizziness, numbness, weakness, or any other concerns. Scripts Cephalexin (Cephalexin) 500 Mg Capsule 500 MG PO TID, #21 CAP 0 Refills Prov: MADAY EPSTEIN 03/28/17 Hydrocodone/Acetaminophen (Hydrocodon -Acetaminophen 5-325) 1 Each Tablet 1 EACH PO Q4H Y for PAIN, #14 TAB 0 Refills Prov: MADAY EPSTEIN 03/28/17 MADAY EPSTEIN March 28, 2017 21:12
[2017-03-28] MEDS ORDERED: ACETAMINOPHEN 500 MG TAB (TYLENOL) PO PRN (21:30)
[2017-03-28] MEDS ORDERED: ONDANSETRON 4 MG/2 ML (SDV) Z0FRAN IVP PRN (21:30)
[2017-03-28] MEDS ORDERED: NS IV 1000 ML 3,000 ML IV PRN (21:30)
--- NOTE | 2017-03-28 21:40 | Diagnostic Imaging Report ---
INDICATION: Headache and earache. History of epidural for three days ago. FINDINGS: Frontal view of the chest demonstrates the lungs to be clear. The heart, mediastinum and pulmonary vascularity are normal. IMPRESSION: Normal chest. Dictated by: Dictated on workstation # [id number]
[2017-03-28] MEDS ORDERED: [UNRECOGNIZED DRUG - SUPPLY] ×2 (21:44→21:45)
[2017-03-28 21:45] LABS: BILIRUBIN,URINE NEGATIVE (NEGATIVE); KETONES,URINE NEGATIVE (NEGATIVE); LEUKOCYTE ESTERASE ,URINE 3+ (NEGATIVE); NITRITE,URINE NEGATIVE (NEGATIVE); PH,URINE 6.5 (5-9); PROTEIN,URINE 2+ (NEGATIVE); UROBILINOGEN,URINE 1 MG/DL (NORMAL)
[2017-03-28 21:56] LABS: SQUAMOUS EPITHELIAL CELL,UR 25-50 /HPF
[2017-03-28 21:57] LABS: BASOPHILS % (AUTO) 0 % (0-10); EOSINOPHILS # (AUTO) 0.4 10^3/uL (0.0-0.3); EOSINOPHILS % (AUTO) 4 % (0-10); LYMPHOCYTES # (AUTO) 1.6 X 10^3 (1.0-4.0); LYMPHOCYTES % (AUTO) 15 % (12-44); MEAN CORPUSCULAR HEMOGLOBIN 29 PG (25-34); MEAN CORPUSCULAR HGB CONC 33 G/DL (32-36); MEAN CORPUSCULAR VOLUME 90 FL (80-99); MEAN PLATELET VOLUME 12.6 FL (7.4-10.4); MONOCYTES # (AUTO) 0.4 X 10^3 (0.0-1.0); MONOCYTES % (AUTO) 4 % (0-12); NEUTROPHILS # (AUTO) 8.1 X 10^3 (1.8-7.8); NEUTROPHILS % (AUTO) 77 % (42-75); PLATELET COUNT 252 10^3/uL (130-400); RED BLOOD COUNT 3.86 10^6/uL (4.35-5.85); RED CELL DISTRIBUTION WIDTH 14.2 % (10.0-14.5); WHITE BLOOD COUNT 10.5 10^3/uL (4.3-11.0)
[2017-03-28 22:06] LABS: INR 0.9 (0.8-1.4); PROTHROMBIN TIME PATIENT 11.9 SEC (12.2-14.7)
--- NOTE | 2017-03-28 22:09 | Diagnostic Imaging Report ---
INDICATION: Headache and earache. History of epidural for three days ago. COMPARISON STUDIES: None. FINDINGS: Noncontrast CT scan of the head demonstrates no mass effect, midline shift, hemorrhage or extra-axial fluid collections. King-white matter differentiation is normal. The ventricles, cortical sulci and basilar cisterns appear normal. Osseous structures are normal. No fluid is seen in the paranasal sinuses or mastoid air cells. IMPRESSION: Normal CT scan of the head. Dictated by: Dictated on workstation # [id number]
[2017-03-28 22:18] LABS: ALANINE AMINOTRANSFERASE 143 U/L (0-55); ANION GAP 10 MMOL/L (5-14); ASPARTATE AMINO TRANSFERASE 93 U/L (5-34); BILIRUBIN,TOTAL 0.3 MG/DL (0.1-1.0); BLOOD UREA NITROGEN 11 MG/DL (7-18); BUN/CREATININE RATIO 21; CALCIUM 8.7 MG/DL (8.5-10.1); CARBON DIOXIDE 20 MMOL/L (21-32); CHLORIDE 110 MMOL/L (98-107); CREATININE SERUM 0.53 MG/DL (0.60-1.30); GFR ESTIMATED > 60; GLUCOSE 104 MG/DL (70-105); POTASSIUM 3.5 MMOL/L (3.6-5.0); SODIUM 140 MMOL/L (135-145); TOTAL PROTEIN 6.2 G/DL (6.4-8.2)
[2017-03-28] MEDS ORDERED: RX-CEPHALEXIN (KEFLEX) 250 MG CAP PPK#4 PO STA (22:25)
[2017-03-28] MEDS ORDERED: RX-HYDROCODONE/APAP 5/325 MG #4 TAB PK PO PRN (22:30)
[2017-03-28] MEDS ORDERED: HYDR-3812 PO (22:32)
[2017-03-28] MEDS ORDERED: CEPH500C PO (22:32)
[2017-03-28 22:58] VITALS: BP 125/68
== END 2017-03-28 22:58 | disposition home or self-care (01) ==
LOC: EDUNIT# 20:07 → ER 20:10
DX: O86.20 Urinary tract infection following delivery, unspecified (principal); N64.4 Mastodynia; R51 Headache; Z3A.00 Weeks of gestation of pregnancy not specified
CPT/HCPCS: 36415; 70450; 71010; 80053; 81000; 83605; 85025; 85610; 85730; 87040; 87088; 87186

== ENCOUNTER → 2021-05-07 | Outpatient (CLI) | payer BC ==
[~2021-05-07] MED LIST changes: +ACHD5005 PO; +CEPH500C PO; -FERR-74 PO; +FERR325T18 PO; -RANI-514 PO; +RANI-607 PO; +[UNRECOGNIZED DRUG - SUPPLY]
--- NOTE | 2021-05-08 11:15 | Diagnostic Imaging Report ---
INDICATION: Routine screening. No prior mammograms are available for comparison. This a baseline study. 2-D and 3-D bilateral screening mammography was performed with CAD. Both breast are heterogeneously dense, limiting the sensitivity of mammography. No mass or malignant appearing microcalcifications are seen. There are benign calcification present. Axillae are unremarkable. IMPRESSION: BI-RADS Category 2 No mammographic features suspicious for malignancy are identified. ACR BI-RADS Category 2: Benign findings. Result letter will be mailed to the patient. Note: At least 10% of breast cancer is not imaged by mammography. Dictated by: Dictated on workstation # [id number]
== END ==
LOC: RAD 15:34
PROVIDERS: ATTEND Family Medicine
DX: Z12.31 Encounter for screening mammogram for malignant neoplasm of breast (principal); Z80.3 Family history of malignant neoplasm of breast
CPT/HCPCS: 77063; 77067